=== PATIENT | male | born 1965 | race Caucasian/White ===

== ENCOUNTER 2022-08-14 07:16 | Outpatient (REF) | payer OTHER, SELFPAY ==
--- NOTE | ~2022-08-14 | XR_ITS ---
EXAMINATION: XR CHEST 2 VIEWS CLINICAL INFORMATION: Nicotine dependence. COMPARISON: None. TECHNIQUE: Frontal and lateral views of the chest were obtained. FINDINGS: The heart, great vessels, pulmonary vasculature and mediastinum are normal. The lungs show no focal infiltrate, effusion or pneumothorax. There is mild elevation of the right hemidiaphragm. There is no acute osseous abnormality. There are degenerative changes of the thoracic spine. XR/XR chest 2V IMPRESSION: No active cardiopulmonary disease.
[2022-08-14 08:00] LABS: Appearance Urine Clear; Color Urine Yellow; Glucose Urine UA Negative (Negative); Leukocyte Esterase Urine Negative (Negative); Nitrite Urine Negative (Negative); Specific Gravity - Urine 1.015 (1.005-1.025); Urine Blood Negative (Negative); Urine Ketones Negative (Negative); Urine Protein Negative (Neg-Trace)
[2022-08-14 08:29] LABS: Creatinine Urine 48.09 mg/dL; Microalbum/Creatinine Ratio Ur 14.5 ug/mg cr
[2022-08-14 08:40] LABS: Alanine Aminotransferase 21 U/L (0-40); Albumin Level 4.5 g/dL (3.5-5.0); Alkaline Phosphatase 89 U/L (39-117); Anion Gap 15 (12-20); Aspartate Amino Transferase 20 U/L (5-37); Bilirubin Total 0.7 mg/dL (0.0-1.0); Blood Urea Nitrogen 12 mg/dL (9-16); Calcium 9.4 mg/dL (8.4-10.2); Carbon Dioxide 27 mmol/L (22-29); Chloride 105 mmol/L (96-108); Cholesterol 162 mg/dL; Estimated Glomerular Filt Rate > 60; Glucose Fasting 111 mg/dL (60-99); HDL Cholesterol 52 mg/dL; LDL Cholesterol Calculated 98 mg/dl; Potassium 4.7 mmol/L (3.3-5.1); Sodium 142 mmol/L (135-145); Total Protein 7.1 g/dL (6.5-8.0); Triglycerides 61 mg/dL
[2022-08-14 08:57] LABS: Prostate Specific Antigen Scr 1.05 ng/mL (<0.05-4.0); TSH reflex Free T4 0.52 uIU/mL (0.32-4.0)
== END 2022-08-14 07:17 | disposition home or self-care (01) ==
LOC: HO.LAB 07:16
PROVIDERS: PCP Family Medicine; Visit Provider Family Medicine
DX: Z00.00 Encounter for general adult medical examination without abnormal findings (principal); Z12.5 Encounter for screening for malignant neoplasm of prostate; I10 Essential (primary) hypertension; F17.200 Nicotine dependence, unspecified, uncomplicated
CPT/HCPCS: 36415; 71046; 80053; 80061; 81003; 82043; 84153; 84443

== ENCOUNTER → 2022-08-26 14:15 | Outpatient (BNVA) | payer OTHER, SELFPAY | PROVIDERS: PCP Family Medicine; Visit Provider Physician Assistant | DX: Z13.89 Encounter for screening for other disorder (principal) ==

== ENCOUNTER 2023-07-23 07:02 | Outpatient (REF) | payer OTHER, SELFPAY ==
[2023-07-23 08:00] LABS: Estimated Average Glucose 111 mg/dL; Hemoglobin A1c % 5.5 % (<6.0)
[2023-07-23 08:31] LABS: Alanine Aminotransferase 17 U/L (0-40); Albumin Level 4.3 g/dL (3.5-5.0); Alkaline Phosphatase 80 U/L (39-117); Anion Gap 12 (12-20); Aspartate Amino Transferase 17 U/L (5-37); Bilirubin Total 0.4 mg/dL (0.0-1.0); Blood Urea Nitrogen 14 mg/dL (9-16); Calcium 9.7 mg/dL (8.4-10.2); Carbon Dioxide 31 mmol/L (22-29); Chloride 103 mmol/L (96-108); Cholesterol 150 mg/dL (<200); Estimated Glomerular Filt Rate > 60; Glucose Fasting 112 mg/dL (60-99); HDL Cholesterol 51 mg/dL (>40); LDL Cholesterol Calculated 84 mg/dL (<100); Potassium 4.6 mmol/L (3.3-5.1); Sodium 141 mmol/L (135-145); Total Protein 7.6 g/dL (6.5-8.0); Triglycerides 79 mg/dL (<150)
== END 2023-07-23 07:03 | disposition home or self-care (01) ==
LOC: HO.LAB 07:02
PROVIDERS: PCP Family Medicine; Visit Provider Family Medicine
DX: Z00.00 Encounter for general adult medical examination without abnormal findings (principal); R73.01 Impaired fasting glucose
CPT/HCPCS: 36415; 80053; 80061; 83036

== ENCOUNTER 2023-07-29 15:05 | Outpatient (AMB) | payer OTHER, SELFPAY ==
--- NOTE | 2023-07-29 15:17 | MHC.PC.OV ---
Vital Signs 07/29/23 15:18 Height 5 ft 7 in Weight 159 lb 8 oz BMI 25.0 BP 128/78 Blood Pressure Location Lt brachial Position Sitting Pulse 95 Pulse Source Pulse Oximeter Pulse Oximetry (%) 95 Oxygen Delivery Method Room Air Intake Visit Reasons: f/u HLD and elevated fasting glucose Intake Note: Patient is here for follow up on HLD and elevated fasting blood sugar. Allergies No Known Allergies Allergy (Verified 07/29/23 15:20) Tobacco use date assessed: 07/29/23 HPI f/u HLD and elevated fasting glucose HPI Details 58 y/o male presents to f/u HLD and elevated fasting glucose. Labs were drawn 07/23/23. Reviewed labs with pt. Elevated fasting glucose of 112. A1c 5.5%. Triglycerides 79. TC 150. LDL 84. HDL 51. He is on pravastatin 80mg. Blood pressure today 128/78. He is on lisinopril 10mg daily. Pt reports has yesterday. [facility] Medical History Asthma High cholesterol Social History (Updated 08/26/22 @ 14:34 by Tiesha Dunaway PA-C) Household Members Other:: , 1 daughter Housing: House Patient Tobacco Use Status: Never used Tobacco e-Cigarette/Vaping Use: Never Used Second Hand Smoke Exposure: No Current occupational status: employed Current occupational exposures/hazards: No Cognitive needs: No Hearing needs: No Vision needs: No Questionnaire LUZ ELENA-7 AMB Questionnaire LUZ ELENA-7 Date LUZ ELENA - 7 assessed: 05/18/22 Source: Developed by Drs. Nacho Mir, aTra Carrillo, Kendell Miller and colleagues, with an educational zuleika from [employer]. Review of Systems Const Denies chills, Denies fatigue, Denies fever(s), Denies headache(s) and Denies weakness ENT Denies dizziness and Denies headache(s) Card Denies chest pain, Denies lightheadedness, Denies dyspnea and Denies other (Palpitations) Resp Denies cough, Denies dyspnea, Denies wheezing and Denies other ( shortness of breath) Musc Denies numbness and Denies tingling Neuro Denies dizziness, Denies headache(s), Denies numbness, Denies tingling, Denies paresthesias and Denies weakness Psych Denies anxiety and Denies depression Endo Denies fatigue Aller/Immun Denies wheezing Physical exam (Primary Care) BMI result Body Mass Index 25.0 Tobacco/Smoking Status: Tobacco use Status Tobacco use date assessed 07/30/22 09/22/22 17:12 Patient Tobacco Use Status Never used Tobacco 09/22/22 17:12 e-Cigarette/Vaping Use Never Used 09/22/22 17:12 Const General: no acute distress and well developed Nutritional Appearance: well nourished Orientation/consciousness: patient oriented x3 [facility] Head: Yes normocephalic and Yes atraumatic Eyes General: appearance normal, both eyes and all related structures Pupils: Equal, round and reactive pupils present EOM: EOMs intact bilaterally Resp Effort & Inspection: normal respiratory effort Auscultation: clear to auscultation bilaterally Cardio Rate: regular rate Rhythm: regular rhythm Heart sounds: S1 normal heart sound present, S2 normal heart sound present, no gallops, no murmurs and no rubs Neuro General: patient oriented x3 and gait normal Cranial nerves: Yes Equal, round and reactive pupils present Psych Affect: normal affect Assessment and Plan Assessment & Plan (1) Elevated fasting glucose: Code(s): R73.01 - Impaired fasting glucose Plan: A1c?5.5%?which?is?within?normal?range?though?at?upper?ends Encouraged?a?diet?lower?in?sugars?and?starches Maintain?good?weight?control?and?exercise. (2) Hyperlipidemia: Code(s): E78.5 - Hyperlipidemia, unspecified Plan: He?is?on?pravastatin?80?mg?daily Good?control Continue?current?medication (3) Hypertension: Code(s): I10 - Essential (primary) hypertension Plan: Blood?pressure?appears?well?controlled.??Goal?is?less?than?140/90 Continue?current?medication (4) Acute adjustment disorder: Code(s): F43.20 - Adjustment disorder, unspecified Plan: Patient's??passed?away?yesterday.??He?has?good?family?support. He?did?say?that?he?felt?like?he??just?would?like?someone?to?talk?to Will?have?the?nurse?navigator?touch?base?with?him?soon?as?possible. Can refer to therapy if he likes. Orders: Orders Basic Metabolic Panel Today Z00.00 - Encounter for general adult medical examination without abnormal findings TSH reflex Free T4 Today Z00.00 - Encounter for general adult medical examination without abnormal findings Prostate Specific Antigen Scr Today Z12.5 - Encounter for screening for malignant neoplasm of prostate UA and rflx microscopic Today Z00.00 - Encounter for general adult medical examination without abnormal findings Referrals Nurse Navigator Referral F43.20 - Adjustment disorder, unspecified Coding Level of Care Code Est Pt Level 4 (60207) Diagnoses Elevated fasting glucose R73.01 Hyperlipidemia E78.5 Hypertension I10 Acute adjustment disorder F43.20
[2023-07-29 15:18] VITALS: BP 128/78; PULSE 95; O2SAT 95; BMI 25.0
== END 2023-07-29 15:46 | disposition home or self-care (01) ==
PROVIDERS: PCP Family Medicine; Visit Provider Family Medicine
DX: R73.01 Impaired fasting glucose (principal); E78.5 Hyperlipidemia, unspecified; I10 Essential (primary) hypertension; F43.20 Adjustment disorder, unspecified
CPT/HCPCS: 99214

== ENCOUNTER 2023-09-22 13:52 | Outpatient (AMB) | payer OTHER, SELFPAY ==
[2023-09-22 13:55] VITALS: BP 121/79; PULSE 103; O2SAT 96; BMI 23.6
--- NOTE | 2023-09-22 13:55 | A.OFFPC_ITS ---
Vital Signs 09/22/23 13:55 Height 5 ft 7 in Weight 151 lb BMI 23.6 BP 121/79 Blood Pressure Location Rt brachial Position Sitting Pulse 103 H Pulse Source Pulse Oximeter Pulse Oximetry (%) 96 Oxygen Delivery Method Room Air Intake Visit Reasons: CPE w/ f/u labs & health maint Intake Note: Pt presents to the office today for a CPE with f/u labs and health maint. He states he is doing much better within the past few weeks but states he will still have some anxiety attacks every so often. He states he thinks he is coping well with everything. Allergies No Known Allergies Allergy (Verified 09/22/23 13:57) Tobacco use date assessed: 07/29/23 Dental Screening Dental Screen Date: 09/22/23 Did you have a dental visit in the last 12 months?: No Did you have a dental problem in the last 6 months where you did not have access to dental care?: No Was dental information given to patient?: Patient declined HPI CPE w/ f/u labs & health maint HPI Details 58 y/o male presents for a CPE with f/u labs and health maintenance. Had already reviewed labs drawn 07/23/23. Blood pressure today 121/79, 103p. He is on lisinopril 10mg daily. Has not seen a GI group for a colonoscopy yet. [facility] Medical History Asthma High cholesterol Social History (Updated 09/22/23 @ 13:59 by Gilma Ritter MA) Household Members: None Housing: House Patient Tobacco Use Status: Never used Tobacco e-Cigarette/Vaping Use: Never Used Second Hand Smoke Exposure: No Current occupational status: employed Current occupational exposures/hazards: No Cognitive needs: No Hearing needs: No Vision needs: No Questionnaire PHQ-9 Over the last 2 weeks, how often have you been bothered by any of the following problems? 1. Little interest or pleasure in doing things: not at all 2. Feeling down, depressed, or hopeless: not at all 3. Trouble falling or staying asleep, or sleeping too much: several days 4. Feeling tired or having little energy: several days 5. Poor appetite or overeating: not at all 6. Feeling bad about yourself - or that you are a failure or have let yourself or your family down: not at all 7. Trouble concentrating on things, such as reading the newspaper or watching television: not at all 8. Moving or speaking so slowly that other people could have noticed. Or the opposite - being so fidgety or restless that you have been moving around a lot more than usual: several days 9. Thoughts that you would be better off or of hurting yourself in some way: not at all Total score: 3 Depression Screening Interpretation: Negative Depression Screening Done: Yes 61623 - PHQ-9 Billing: Yes Source: Developed by Drs. Nacho Mir, Tara Carrillo, Kendell Miller and colleagues, with an educational zuleika from [employer]. Thrive Questionnaire Date Thrive assessed: 09/22/23 I am a: Patient What is your living situation today?: I have a steady place to live Within the past 12 months, did the food you bought not last and you didn't have the money to get more?: Never true Within the past 12 months, did you worry whether your food would run out before you got money to buy more?: Never true Do you have trouble paying for medicines?: No Do you have trouble getting transportation to medical appointments?: No Do you have trouble paying your heating and electricity bill?: No Do you have trouble taking care of your child, family member or friend?: No Do you have trouble with day-to-day activities such as bathing, preparing meals, shopping, managing finances, etc.?: No Are you currently unemployed and looking for a job?: No Are you interested in more education?: No THRIVE Score: 0 AUDIT C Alcohol Use Questionnaire (AUDIT-C) 1. How often do you have a drink containing alcohol?: Monthly or less 2. How many drinks containing alcohol do you have on a typical day when you are drinking?: 1 or 2 3. How often do you have six or more drinks on one occasion?: Never Total Score: 1 LUZ ELENA-7 AMB Questionnaire LUZ ELENA-7 Date LUZ ELENA - 7 assessed: 09/22/23 Feeling nervous, anxious, or on edge: 0 = Not at all Not being able to stop or control worryin = Not at all Worrying too much about different things: 0 = Not at all Trouble relaxin = Several days Being so restless that it is hard to sit still: 1 = Several days Becoming easily annoyed or irritable: 0 = Not at all Feeling afraid as if something awful might happen: 0 = Not at all Total LUZ ELENA-7 score (0-4 normal; 5-9 mild; 10-14 moderate; 15-21 severe): 2 Source: Developed by Drs. Nacho Mir, Tara Carrillo, Kendell Miller and colleagues, with an educational zuleika from [employer]. LUZ ELENA-7 Assessment Billing LUZ ELENA-7 Assessment Tool: LUZ ELENA-7 Assessment 17427 Review of Systems Const Denies chills, Denies fatigue, Denies fever(s), Denies headache(s) and Denies weakness Eyes Denies change in vision ENT Denies dizziness, Denies headache(s), Denies hearing loss, Denies nasal congestion, Denies sinus pain, Denies sinus pressure and Denies sore throat Card Denies chest pain, Denies lightheadedness, Denies dyspnea and Denies other (palpitations) Resp Denies cough, Denies dyspnea and Denies wheezing GI Denies abdominal pain, Denies melena, Denies hematochezia, Denies change in bowel habits, Denies dyspepsia and Denies nausea Denies hematuria and Denies dysuria Musc Denies abnormal gait, Denies myalgias, Denies arthralgias, Denies numbness and Denies tingling Skin/Breast Denies rash, Denies unusual bruising and Denies wounds Neuro Denies abnormal gait, Denies dizziness, Denies headache(s), Denies memory loss, Denies numbness, Denies Sensory deficit (Neuro), Denies tingling and Denies weakness Psych Denies anxiety, Denies depression and Denies memory loss Endo Denies cold intolerance, Denies fatigue, Denies heat intolerance, Denies polydipsia and Denies polyuria Brayden/Lymph Denies easy bleeding and Denies easy bruising Aller/Immun Denies wheezing Physical exam (Primary Care) Vital Signs: Last Vital Signs Pulse 103 H 09/22/23 13:55 BP 121/79 09/22/23 13:55 Pulse Ox 96 09/22/23 13:55 Oxygen Delivery Method Room Air 09/22/23 13:55 BMI result Body Mass Index 23.6 Tobacco/Smoking Status: Tobacco use Status Tobacco use date assessed 07/29/23 07/29/23 15:20 Patient Tobacco Use Status Never used Tobacco 09/22/23 13:59 e-Cigarette/Vaping Use Never Used 09/22/23 13:59 Depression Screening Interpretation: Negative Const General: no acute distress, well developed, alert and awake Nutritional Appearance: well nourished Orientation/consciousness: patient oriented x3 [facility] Head: Yes normocephalic and Yes atraumatic Ears: hearing grossly normal bilaterally and TM's normal bilaterally General nose exam: Normal external nose present and Normal nares present Mouth: Normal oral and palatal mucosa present and moist mucous membranes Teeth and gingiva: dentition normal Throat: Yes posterior oropharynx normal Eyes General: appearance normal, both eyes and all related structures Pupils: Equal, round and reactive pupils present and Pupil accommodation reflex normal EOM: EOMs intact bilaterally Neck Neck: Yes normal visual inspection, Yes no lymphadenopathy and Yes trachea midline Thyroid: Thyroid normal Carotids: no bruits Lymphatic: no lymphadenopathy noted Chest Chest palpation & inspection: normal inspection of the chest Resp Effort & Inspection: normal respiratory effort Auscultation: clear to auscultation bilaterally Cardio Rate: regular rate Rhythm: regular rhythm Heart sounds: S1 normal heart sound present, S2 normal heart sound present, no gallops, no murmurs and no rubs Bruits: no abdominal aortic bruits and no carotid bruits GI Palpation (GI): No Abdominal aortic bruit present, Soft to palpation, nontender, No hepatosplenomegaly present and No Rebound tenderness present Auscultation: normal bowel sounds General: Yes no CVA tenderness Back/Spine/Pelvis Back: no CVA tenderness Cervical Spine: cervical ROM normal and No Cervical spine tenderness Thoracic/Lumbar Spine: thoraco-lumbar ROM normal, No pain with thoraco-lumbar ROM, No thoracic spinal tenderness and No lumbar spinal tenderness Skin Lesions: no lesions Rashes: no rashes Trauma: no lacerations or abrasions Wounds: no wounds Nails: normal Neuro General: patient oriented x3 Cranial nerves: Yes Equal, round and reactive pupils present Cognition (Neuro): normal cognition Gait exam (Neuro): Normal gait present Motor exam (neuro): 5/5 motor strength present throughout Sensory Exam: No Sensory deficit (Neuro) Deep tendon reflexes (DTR's): Right patellar reflex intensity grade: 2+ and Left patellar reflex intensity grade: 2+ Extrem General: Yes normal to inspection and No edema Psych Appearance: grossly normal Affect: normal affect Attitude: cooperative Thought process: Normal thought process present Assessment and Plan Assessment & Plan (1) Adult general medical exam: Code(s): Z00.00 - Encounter for general adult medical examination without abnormal findings Plan: 58-year-old?male?presents?for?complete?physical?exam Encouraged?healthy?diet?with?active?lifestyle?and?plenty?of?exercise (2) Acute adjustment disorder: Code(s): F43.20 - Adjustment disorder, unspecified Plan: Patient?is?coping?well?and?has?plenty?of?family?suppor t?after?the?passing?of?his? He?can?continue?hydroxyzine He?had?seen?the?nurse?navigator?at?the?end?of?his?last?visit?with?me.??He?does?n ot?feel?that?he?needs?therapist?at?this?time. (3) Screening for prostate cancer: Code(s): Z12.5 - Encounter for screening for malignant neoplasm of prostate Plan: PSA?is?within?normal?limit Will?continue?annual?screen (4) Screening for colon cancer: Code(s): Z12.11 - Encounter for screening for malignant neoplasm of colon Plan: Patient?had?had?a?positive?Cologuard?test?in?2021.??He?had?been?referred?to?GI?a nd?appears?to?have?seen?the?g astroenterology?group?once?but?has?not?completed?follow-up. Referred?back?to?GI (5) Hypertension: Code(s): I10 - Essential (primary) hypertension Plan: Blood?pressure?is?controlled. Goal?is?less?than?140/90 Continue?current?medication Orders: Referrals Gastroenterology Referral R19.5 - Other fecal abnormalities Coding Level of Care Code Est Pt Level 3 (50789) Est Pt Prev Care 40-64y(07976) Diagnoses Adult general medical exam Z00.00 Acute adjustment disorder F43.20 Screening for prostate cancer Z12.5 Screening for colon cancer Z12.11 Hypertension I10 Additional Codes LUZ ELENA-7 Assessment Billing - LUZ ELENA-7 Assessment Tool: LUZ ELENA-7 Assessment 83131 ([id number])
== END 2023-09-22 14:22 | disposition home or self-care (01) ==
PROVIDERS: PCP Family Medicine; Visit Provider Family Medicine
DX: Z00.00 Encounter for general adult medical examination without abnormal findings (principal); F43.20 Adjustment disorder, unspecified; I10 Essential (primary) hypertension; Z12.5 Encounter for screening for malignant neoplasm of prostate; Z12.11 Encounter for screening for malignant neoplasm of colon
CPT/HCPCS: 99396

== ENCOUNTER 2024-06-15 11:42 | Outpatient (AMB) | payer OTHER, SELFPAY ==
--- NOTE | 2024-06-15 12:27 | A.OFFPC_ITS ---
Vital Signs 06/15/24 12:31 Height 5 ft 7 in Weight 145 lb 4 oz BMI 22.7 BP 92/60 Blood Pressure Location Lt brachial Position Sitting Respiration 14 Pulse 87 Pulse Source Pulse Oximeter Temp 98.0 F Temp Source Oral Pulse Oximetry (%) 97 Oxygen Delivery Method Room Air Intake Visit Reasons: f/u acute adjustment disorder, chronic conditions Intake Note: F/U htn Allergies No Known Allergies Allergy (Verified 06/15/24 12:30) Medication List - Last Reconciled 06/15/24 by Mario Valladares MD albuterol sulfate 90 mcg/actuation 2 puffs inhalation Q6H PRN 30 days bisacodyl (Dulcolax (bisacodyl)) 10 mg (2 x 5 mg) PO ONCE 1 day budesonide 90 mcg/actuation (Pulmicort Flexhaler) 1 inh inhalation BID 30 days fluticasone propionate 220 mcg/actuation 2 puffs inhalation BID 30 days lisinopril 10 mg PO DAILY 90 days polyethylene glycol 3350 (Miralax) 238 grams PO ONCE 1 day pravastatin 80 mg PO BEDTIME 90 days Tobacco use date assessed: 07/29/23 Dental Screening Dental Screen Date: 09/22/23 HPI f/u acute adjustment disorder, chronic conditions HPI Details 59 y/o male presents to f/u acute adjust ment disorder, chronic conditions. Blood pressure today 92/60, 87p. He is on lisinopril 10mg daily. Positive cologuard test. [facility], [facility] Medical History Asthma High cholesterol Social History (Updated 09/22/23 @ 13:59 by Gilma Ritter CMA) Household Members: None Housing: House Patient Tobacco Use Status: Never used Tobacco e-Cigarette/Vaping Use: Never Used Second Hand Smoke Exposure: No Current occupational status: employed Current occupational exposures/hazards: No Cognitive needs: No Hearing needs: No Vision needs: No Questionnaire PHQ-9 Over the last 2 weeks, how often have you been bothered by any of the following problems? 2. Feeling down, depressed, or hopeless: several days 3. Trouble falling or staying asleep, or sleeping too much: several days 5. Poor appetite or overeating: not at all 6. Feeling bad about yourself - or that you are a failure or have let yourself or your family down: not at all 7. Trouble concentrating on things, such as reading the newspaper or watching television: not at all 8. Moving or speaking so slowly that other people could have noticed. Or the opposite - being so fidgety or restless that you have been moving around a lot more than usual: not at all 9. Thoughts that you would be better off or of hurting yourself in some way: not at all Source: Developed by Drs. Nacho Mir, Tara Carrillo, Kendell Miller and colleagues, with an educational zuleika from [employer]. Thrive Questionnaire Date Thrive assessed: 09/22/23 I am a: Patient What is your living situation today?: I have a steady place to live Within the past 12 months, did the food you bought not last and you didn't have the money to get more?: Never true Within the past 12 months, did you worry whether your food would run out before you got money to buy more?: Never true Do you have trouble paying for medicines?: No Do you have trouble getting transportation to medical appointments?: No Do you have trouble paying your heating and electricity bill?: No Do you have trouble taking care of your child, family member or friend?: No Do you have trouble with day-to-day activities such as bathing, preparing meals, shopping, managing finances, etc.?: No Are you currently unemployed and looking for a job?: No Are you interested in more education?: No Please select the resources that you would like help with: None Currently or been in a relationship where the following occur: No concerns reported THRIVE Score: 0 AUDIT C Alcohol Use Questionnaire (AUDIT-C) 1. How often do you have a drink containing alcohol?: 2-4 times a month 2. How many drinks containing alcohol do you have on a typical day when you are drinking?: 1 or 2 3. How often do you have six or more drinks on one occasion?: Never Total Score: 2 LUZ ELENA-7 AMB Questionnaire LUZ ELENA-7 Date LUZ ELENA - 7 assessed: 09/22/23 Feeling nervous, anxious, or on edge: 1 = Several days Not being able to stop or control worryin = Not at all Worrying too much about different things: 1 = Several days Trouble relaxin = Several days Being so restless that it is hard to sit still: 1 = Several days Becoming easily annoyed or irritable: 1 = Several days Feeling afraid as if something awful might happen: 1 = Several days Total LUZ ELENA-7 score (0-4 normal; 5-9 mild; 10-14 moderate; 15-21 severe): 6 Source: Developed by Drs. Nacho Mir, Tara Carrillo, Kendell Miller and colleagues, with an educational zuleika from [employer]. Review of Systems Const Denies chills, Denies fatigue, Denies fever(s), Denies headache(s) and Denies weakness ENT Denies dizziness and Denies headache(s) Card Denies chest pain, Denies lightheadedness, Denies dyspnea and Denies other (Palpitations) Resp Denies cough, Denies dyspnea, Denies wheezing and Denies other ( shortness of breath) Musc Denies numbness and Denies tingling Neuro Denies dizziness, Denies headache(s), Denies numbness, Denies tingling, Denies paresthesias and Denies weakness Psych Denies anxiety and Denies depression Endo Denies fatigue Aller/Immun Denies wheezing Physical exam (Primary Care) Vital Signs: Last Vital Signs Temp 98.0 F 06/15/24 12:31 Pulse 87 06/15/24 12:31 Resp 14 06/15/24 12:31 BP 92/60 06/15/24 12:31 Pulse Ox 97 06/15/24 12:31 Oxygen Delivery Method Room Air 06/15/24 12:31 BMI result Body Mass Index 25.4 Tobacco/Smoking Status: Tobacco use Status Tobacco use date assessed 07/29/23 06/15/24 12:27 Patient Tobacco Use Status Never used Tobacco 06/15/24 12:27 e-Cigarette/Vaping Use Never Used 06/15/24 12:27 Thrive Assessment: Date of Thrive Assessment Date Thrive assessed 09/22/23 06/15/24 12:27 Currently or been in a relationship where the following occur: No concerns reported Const General: no acute distress and well developed Nutritional Appearance: well nourished Orientation/consciousness: patient oriented x3 HENMT Head: Yes normocephalic and Yes atraumatic Eyes General: appearance normal, both eyes and all related structures Pupils: Equal, round and reactive pupils present EOM: EOMs intact bilaterally Resp Effort & Inspection: normal respiratory effort Auscultation: clear to auscultation bilaterally Cardio Rate: regular rate Rhythm: regular rhythm Heart sounds: S1 normal heart sound present, S2 normal heart sound present, no gallops, no murmurs and no rubs Neuro General: patient oriented x3 and gait normal Cranial nerves: Yes Equal, round and reactive pupils present Psych Affect: normal affect Coding Level of Care Code Est Pt Level 4 (22273) Diagnoses Hypertension I10 Acute adjustment disorder F43.20 Positive colorectal cancer screening using Cologuard test R19.5 Assessment & Plan Assessment & Plan (1) Hypertension: Code(s): I10 - Essential (primary) hypertension Category: Medical Plan: Blood?pressure?is?little?too?low.??He?has?change?dietary ?habits?since?his??passed?away He?will?decrease?lisinopril?to?5?mg?daily?by?taking?1/2?tab?daily. ?He?will?check?his?blood?pressures?and?if?blood?pressures?are?running?higher?he? will?take?the?other?half. Will?follow-up?in?3?months?to?adjust?medication?as?needed (2) Acute adjustment disorder: Code(s): F43.20 - Adjustment disorder, unspecified Category: Medical Plan: Patient's??had?passed?away?prior?to?our?last?visit He?has?good?family?and?friend?support?in?is?stable We?discussed?that?if?he?would?like?a?therapist?or?to?discuss?medications?know He?is?having?some?difficulty?with?sleep?and?I?gave?him?a?script?for?trazodone?wh ich?he?can?try?before?bedtime (3) Positive colorectal cancer screening using Cologuard test: Comment: No GI complaints No family history GI can Schedule colonoscopy Code(s): R19.5 - Other fecal abnormalities Category: Medical Plan: Patient?had?not?been?contacted?for?screening?for?colon?cancer?after?having?a?pos itive?Cologuard?test. He?says?his?contact?info?was?his?'s?and?she?has?passed?away. He?has ?updated?his?contact?info?and?I?have?renewed?his?referral?to?gastroenterology. Orders: Referrals Gastroenterology Referral R19.5 - Other fecal abnormalities Medications: New trazodone 50 mg PO BEDTIME 30 days PRN 30 tabs 1RF sleep Changed From lisinopril 10 mg PO DAILY 90 days 90 tabs 0RF To lisinopril 5 mg (1/2 x 10 mg) PO DAILY 90 days 45 tabs 0RF
[2024-06-15 12:31] VITALS: BP 92/60; PULSE 87; RESP 14; TEMP 36.7; O2SAT 97; BMI 22.7
== END 2024-06-15 12:54 | disposition home or self-care (01) ==
PROVIDERS: PCP Family Medicine; Visit Provider Family Medicine
DX: I10 Essential (primary) hypertension (principal); F43.20 Adjustment disorder, unspecified; R19.5 Other fecal abnormalities

== ENCOUNTER → 2024-06-15 11:42 | Outpatient (BNVA) | payer OTHER, SELFPAY | PROVIDERS: PCP Family Medicine; Visit Provider Family Medicine ==

== ENCOUNTER 2024-10-02 15:27 | Outpatient (AMB) | payer OTHER, SELFPAY ==
--- NOTE | 2024-10-02 15:33 | MHC.PC.OV ---
Vital Signs 10/02/24 15:39 Height 5 ft 7 in Weight 149 lb BMI 23.3 BP 124/73 Blood Pressure Location Rt brachial Position Sitting Respiration 16 Pulse 67 Pulse Source Pulse Oximeter Temp 97.8 F Temp Source Oral Pulse Oximetry (%) 94 Oxygen Delivery Method Room Air Intake Visit Reasons: PAM [place] pt. Intake Note: patient here for CPE Medical Review Specialist Required: No Allergies No Known Allergies Allergy (Verified 10/02/24 15:49) Medication List - Last Reconciled 10/02/24 by Poppy Potts CNP albuterol sulfate 90 mcg/actuation 2 puffs inhalation Q6H PRN 30 days budesonide 90 mcg/actuation (Pulmicort Flexhaler) 1 inh inhalation BID 30 days lisinopril 5 mg (1/2 x 10 mg) PO DAILY 90 days pravastatin 80 mg PO BEDTIME 90 days trazodone 50 mg PO BEDTIME PRN 30 days Tobacco use date assessed: 10/02/24 Dental Screening Dental Screen Date: 10/02/24 Did you have a dental visit in the last 12 months?: No Did you have a dental problem in the last 6 months where you did not have access to dental care?: No Was dental information given to patient?: Yes HPI HPI Comments History of Present Illness Details 59-year-old male presents for an extended physical exam. He is a patient of Dr. Valladares. Acute issue(s) - Asthma: He is on albuterol inhaler and pulmicort. He had flu-like symptoms 3 weeks ago and has been experiencing nasal congestion and wheezing since. He has been using his albuterol inhaler more. Past Medical History - Hypertension, hyperlipidemia, asthma Social History - Former smoker, smoked about 1 pack daily x 15-20 years, quit 2 years ago. Does not vape. Drinks 1-2 mixed drinks occasionally on Saturdays. Denies recreational drug use - Has been making healthy dietary choices. Exercises routinely. Generally sleep well Health maintenance - Last eye exam was 2-3 years ago at [facility]. 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 positive 2 years ago. He has never had a colonoscopy. He has an appointment with [facility] [place] gastroenterology for a colonoscopy [facility] Medical History Asthma High cholesterol Social History (Updated 09/22/23 @ 13:59 by Gilma Ritter CMA) Household Members: None Housing: House Patient Tobacco Use Status: Never used Tobacco e-Cigarette/Vaping Use: Never Used Second Hand Smoke Exposure: No Current occupational status: employed Current occupational exposures/hazards: No Cognitive needs: No Hearing needs: No Vision needs: No Questionnaire PHQ-9 Over the last 2 weeks, how often have you been bothered by any of the following problems? 1. Little interest or pleasure in doing things: not at all 2. Feeling down, depressed, or hopeless: not at all 3. Trouble falling or staying asleep, or sleeping too much: not at all 4. Feeling tired or having little energy: not at all 5. Poor appetite or overeating: not at all 6. Feeling bad about yourself - or that you are a failure or have let yourself or your family down: not at all 7. Trouble concentrating on things, such as reading the newspaper or watching television: not at all 8. Moving or speaking so slowly that other people could have noticed. Or the opposite - being so fidgety or restless that you have been moving around a lot more than usual: not at all 9. Thoughts that you would be better off or of hurting yourself in some way: not at all Total score: 0 Depression Screening Interpretation: Negative Depression Screening Done: Yes 01969 - PHQ-9 Billing: Yes Source: Developed by Drs. Nacho Mir, Tara Carrillo, Kendell Miller and colleagues, with an educational zuleika from [email or web address]. Thrive Questionnaire Date Thrive assessed: 10/02/24 I am a: Patient What is your living situation today?: I have a steady place to live Within the past 12 months, did the food you bought not last and you didn't have the money to get more?: Never true Within the past 12 months, did you worry whether your food would run out before you got money to buy more?: Never true Do you have trouble paying for medicines?: No Do you have trouble getting transportation to medical appointments?: No Do you have trouble paying your heating and electricity bill?: No Do you have trouble taking care of your child, family member or friend?: No Do you have trouble with day-to-day activities such as bathing, preparing meals, shopping, managing finances, etc.?: No Are you currently unemployed and looking for a job?: No Are you interested in more education?: No Please select the resources that you would like help with: None Currently or been in a relationship where the following occur: No concerns reported THRIVE Score: 0 AUDIT C Alcohol Use Questionnaire (AUDIT-C) 1. How often do you have a drink containing alcohol?: 2-4 times a month 2. How many drinks containing alcohol do you have on a typical day when you are drinking?: 1 or 2 3. How often do you have six or more drinks on one occasion?: Never Total Score: 2 LUZ ELENA-7 AMB Questionnaire LUZ ELENA-7 Date LUZ ELENA - 7 assessed: 10/02/24 Feeling nervous, anxious, or on edge: 1 = Several days Not being able to stop or control worryin = Not at all Worrying too much about different things: 1 = Several days Trouble relaxin = Several days Being so restless that it is hard to sit still: 0 = Not at all Becoming easily annoyed or irritable: 1 = Several days Feeling afraid as if something awful might happen: 0 = Not at all Total LUZ ELENA-7 score (0-4 normal; 5-9 mild; 10-14 moderate; 15-21 severe): 4 Source: Developed by Drs. Nacho Mir, Tara Carrillo, Kendell Miller and colleagues, with an educational zuleika from [email or web address]. LUZ ELENA-7 Assessment Billing LUZ ELENA-7 Assessment Tool: LUZ ELENA-7 Assessment 18211 ACT Questionnaire In the past 4 weeks, how much of the time did your asthma keep you from getting as much done at work, school or at home?: None of the time During the past 4 weeks, how often have you had shortness of breath?: 3-6 times a week During the past 4 weeks, how often did your asthma symptoms wake you up at night or earlier than usual in the morning?: 2-3 nights a week During the past 4 weeks, how often have you had to use your rescue inhaler or nebulizer medication?: More than 3 times per day How would you rate your asthma control during the past 4 weeks?: Somewhat controlled ACT Interpretation: Positive Score: 14 Review of Systems Const Details: Denies chills, Denies fatigue, Denies fever(s), Denies headache(s) and Denies weakness HEENT Denies change in vision, Denies dizziness, Denies headache(s), Denies hearing loss, Denies nasal congestion, Denies sinus pain, Denies sinus pressure and Denies sore throat Card Denies chest pain, Denies lightheadedness, Denies dyspnea and Denies other (palpitations) Resp Denies cough, Denies dyspnea and Denies wheezing GI Denies abdominal pain, Denies melena, Denies hematochezia, Denies change in bowel habits, Denies dyspepsia and Denies nausea Denies hematuria and Denies dysuria Musc Denies abnormal gait, Denies myalgias, Denies arthralgias, Denies numbness and Denies tingling Skin/Breast Denies rash, Denies unusual bruising and Denies wounds Neuro Denies abnormal gait, Denies dizziness, Denies headache(s), Denies memory loss, Denies numbness, Denies Sensory deficit (Neuro), Denies tingling and Denies weakness Psych Denies anxiety, Denies depression and Denies memory loss Endo Denies cold intolerance, Denies fatigue, Denies heat intolerance, Denies polydipsia and Denies polyuria Brayden/Lymph Denies easy bleeding and Denies easy bruising Aller/Immun Denies wheezing Physical exam (Primary Care) Vital Signs: Last Vital Signs Temp 97.8 F 10/02/24 15:39 Pulse 67 10/02/24 15:39 Resp 16 10/02/24 15:39 BP 124/73 10/02/24 15:39 Pulse Ox 94 10/02/24 15:39 Oxygen Delivery Method Room Air 10/02/24 15:39 BMI result Body Mass Index 23.3 Tobacco/Smoking Status: Tobacco use Status Tobacco use date assessed 10/02/24 10/02/24 15:44 Patient Tobacco Use Status Never used Tobacco 10/02/24 15:36 e-Cigarette/Vaping Use Never Used 10/02/24 15:36 PHQ-9: PHQ-9 Score PHQ-9: Total score 0 10/02/24 15:51 Depression Screening Interpretation: Negative Thrive Assessment: Date of Thrive Assessment Date Thrive assessed 10/02/24 10/02/24 15:36 Currently or been in a relationship where the following occur: No concerns reported Const Other: General: no acute distress, well developed, alert and awake Nutritional Appearance: well nourished Orientation/consciousness: patient oriented x3 HENMT Head: Yes normocephalic and Yes atraumatic Ears: hearing grossly normal bilaterally and TM's normal bilaterally General nose exam: Normal external nose present and Normal nares present Mouth: Normal oral and palatal mucosa present and moist mucous membranes Teeth and gingiva: Some decayed and missing teeth Throat: Yes oropharynx normal Eyes Pupils: Equal, round and reactive pupils present and Pupil accommodation reflex normal EOM: EOMs intact bilaterally Neck Neck: Yes normal visual inspection, Yes no lymphadenopathy and Yes trachea midline Thyroid: Thyroid normal Carotids: no bruits Lymphatic: no lymphadenopathy noted Chest Chest palpation & inspection: normal inspection of the chest Resp Effort & Inspection: normal respiratory effort Auscultation: clear to auscultation bilaterally Cardio Rate: regular rate Rhythm: regular rhythm Heart sounds: S1 normal heart sound present, S2 normal heart sound present, no gallops, no murmurs and no rubs Bruits: no abdominal aortic bruits and no carotid bruits GI Palpation (GI): No Abdominal aortic bruit present, Soft to palpation, nontender, No hepatosplenomegaly present and No Rebound tenderness present Auscultation: normal bowel sounds General: Yes no CVA tenderness Back/Spine/Pelvis Back: no CVA tenderness Cervical Spine: cervical ROM normal and No Cervical spine tenderness Thoracic/Lumbar Spine: thoraco-lumbar ROM normal, No pain with thoraco-lumbar ROM, No thoracic spinal tenderness and No lumbar spinal tenderness Skin General: warm and dry. Normal skin color. Normal skin turgor Lesions: no lesions Rashes: no rashes Trauma: no lacerations or abrasions Wounds: no wounds Nails: normal Neuro General: patient oriented x3, gait normal and CN's II-XI intact bilaterally Cranial nerves: Yes Equal, round and reactive pupils present Cognition (Neuro): normal cognition Gait exam (Neuro): Normal gait present Motor exam (neuro): 5/5 motor strength present throughout Sensory Exam: No Sensory deficit (Neuro) Deep tendon reflexes (DTR's): Right patellar reflex intensity grade: 2+ and Left patellar reflex intensity grade: 2+ Extrem General: Yes normal to inspection, No edema and No calf tenderness Psych Appearance: grossly normal Affect: normal affect Attitude: cooperative Thought process: Normal thought process present Immunizations Boostrix Tdap 2.5 Lf unit-8 mcg-5 Lf/0.5 mL intramuscular syringe Performing Provider: Poppy Potts CNP Performing Location: [facility] [place] Family Medicine Administered by: Mynor House RN on 10/02/24 16:14 Dose Route Admin Location Dispensed Lot Number Expiration Date [facility] Missing [employer] Invest[employer] 0.5 mL IM Right Deltoid 0.5 mL [id number] 05/07/25 23250-523-11 [employer] VIS Given Date VIS Provided VIS Publication Date 10/02/24 Single Vaccine 21 Eligibility Eligibility Date Funding Source Not [facility] Eligible 10/02/24 Private Coding Level of Care Code Est Pt Prev Care 40-64y(51358) Diagnoses Adult general medical exam Z00.00 Hypertension I10 Asthma J45.909 Laboratory exam ordered as part of routine general medical examination Z00.00 Additional Codes LUZ ELENA-7 Assessment Billing - LUZ ELENA-7 Assessment Tool: LUZ ELENA-7 Assessment 27185 ([id number]) PHQ-9 - 48613 - PHQ-9 Billing: Yes ([id number]) Asthma Control Questionnaire - ACT Interpretation: Positive ([id number]) Assessment & Plan Assessment & Plan (1) Adult general medical exam: Code(s): Z00.00 - Encounter for general adult medical examination without abnormal findings Category: Medical Plan: Normal physical exam of a 59-year-old male. No significant functional limitation noted. Perform lab work and follow-up for telehealth visit with PCP in 2-4 weeks. Return sooner with symptoms or concerns. Verbalized understanding and agreed with the plan. (2) Hypertension: Code(s): I10 - Essential (primary) hypertension Category: Medical Plan: Blood pressure is controlled, 124/73. Continue current treatment regimen. Follow-up with PCP as planned. (3) Asthma: Comment: Poorly controlled Code(s): J45.909 - Unspecified asthma, uncomplicated Category: Medical Plan: He had flu-like symptoms 3 weeks ago and has been experiencing nasal congestion and wheezing since. He has been using his albuterol inhaler more. ACT score is 14, poorly control asthma. Montelukast 10 mg daily ordered; advised to take as prescribed. Instructed on the risks, benefits, and potential adverse reactions of the medication. Continue use albuterol and Pulmicort inhaler as prescribed. Follow-up with worsening or new symptoms. Verbalized understanding and agreed with treatment plan. (4) Laboratory exam ordered as part of routine general medical examination: Code(s): Z00.00 - Encounter for general adult medical examination without abnormal findings Category: Medical Plan: Fasting labs ordered as part of a complete physical exam. Advised to fast for at least 10 hours before getting labs drawn. May drink water Verbalized understanding and agreed with treatment plan. Orders: Orders TDaP Immunization Today Z23 - Encounter for immunization Complete Blood Count Auto Diff Today Z00.00 - Encounter for general adult medical examination without abnormal findings Comprehensive [place]. Panel Fast Today Z00.00 - Encounter for general adult medical examination without abnormal findings PSA, Ultra Sensitive Today Z00.00 - Encounter for general adult medical examination without abnormal findings TSH reflex Free T4 Today Z00.00 - Encounter for general adult medical examination without abnormal findings UA CC w/rflx Micro + Cult Today Z00.00 - Encounter for general adult medical examination without abnormal findings Vitamin D 25-OH Total Today Z00.00 - Encounter for general adult medical examination without abnormal findings Lipid Panel Today Z00.00 - Encounter for general adult medical examination without abnormal findings Microalbumin, Random (w Creat) Today Z00.00 - Encounter for general adult medical examination without abnormal findings Medications: New Boostrix Tdap (diphth,pertus(acell),tetanus) 0.5 mL IM ONCE 0.5 mL 0RF NS Z23 - Encounter for immunization montelukast 10 mg PO DAILY 30 days 30 tabs 3RF
[2024-10-02 15:39] VITALS: BP 124/73; PULSE 67; RESP 16; TEMP 36.6; O2SAT 94; BMI 23.3
== END 2024-10-02 16:18 | disposition home or self-care (01) ==
LOC: HO.HMCFM 15:28
PROVIDERS: PCP Family Medicine; Visit Provider Nurse Practitioner Family
DX: Z00.00 Encounter for general adult medical examination without abnormal findings (principal); I10 Essential (primary) hypertension; J45.909 Unspecified asthma, uncomplicated; Z23 Encounter for immunization

== ENCOUNTER → 2024-10-02 15:27 | Outpatient (BNVA) | payer OTHER, SELFPAY | PROVIDERS: PCP Family Medicine; Visit Provider Nurse Practitioner Family | DX: Z00.00 Encounter for general adult medical examination without abnormal findings (principal); Z23 Encounter for immunization; I10 Essential (primary) hypertension; J45.909 Unspecified asthma, uncomplicated | CPT/HCPCS: 90471; 90715; 96127; 96160 ==

== ENCOUNTER 2024-10-26 06:01 | Outpatient (REF) | payer OTHER, SELFPAY ==
[2024-10-26 07:17] LABS: Basophils Absolute Auto 0.1 X10*3/uL (0.0-0.2); Basophils Percent Auto 0.8 % (0-2); Eosinophils Absolute Auto 0.3 X10*3/uL (0.0-0.4); Hematocrit 43.6 % (42.0-52.0); Hemoglobin 14.3 g/dl (14.0-18.0); Imm Gran Abs Auto 0.01 X10*3/uL (0.00-0.03); Imm Gran Pct Auto 0.1 % (0.0-0.4); Lymphocytes Absolute Auto 1.6 X10*3/uL (1.2-4.9); Lymphocytes Percent Auto 22.3 % (20-40); MANUAL DIFF FLAG NO; Mean Corpuscular HGB Conc 32.8 g/dl (31.0-36.0); Mean Corpuscular Hemoglobin 31.8 pg (27.0-33.0); Mean Corpuscular Volume 97.1 fL (80.0-98.0); Mean Platelet Volume 9.1 fL (9.4-12.4); Monocytes Absolute Auto 0.7 X10*3/uL (0.1-1.2); Monocytes Percent Auto 10.1 % (2-11); Neutrophils Absolute Auto 4.5 x10*3/uL (2.0-8.3); Neutrophils Percent Auto 62.7 % (45-73); Platelet Count 366 X10*3/uL (160-400); Red Blood Count 4.49 X10*6/uL (4.60-5.80); Red Cell Distribution Width 12.9 % (11.0-16.0); White Blood Count 7.2 X10*3/uL (4.8-10.8)
[2024-10-26 07:25] LABS: Appearance Urine Clear; Color Urine Yellow; Glucose Urine UA Negative (Negative); Leukocyte Esterase Urine Negative (Negative); Nitrite Urine Negative (Negative); PH 7.5 (5.0-9.0); Specific Gravity - Urine 1.015 (1.005-1.025); Urine Blood Negative (Negative); Urine Ketones Negative (Negative); Urine Protein Negative (Neg-Trace)
[2024-10-26 07:47] LABS: Creatinine Urine 71.81 mg/dL; Microalbumin Urine < 5.0 mg/L
[2024-10-26 08:01] LABS: Alanine Aminotransferase 20 U/L (0-40); Albumin Level 4.2 g/dL (3.5-5.0); Anion Gap 11 (12-20); Aspartate Amino Transferase 26 U/L (5-37); Bilirubin Total 0.8 mg/dL (0.0-1.0); Blood Urea Nitrogen 13 mg/dL (9-16); Calcium 9.1 mg/dL (8.4-10.2); Carbon Dioxide 29 mmol/L (22-29); Chloride 105 mmol/L (96-108); Cholesterol 149 mg/dL (<200); Estimated Glomerular Filt Rate > 60; Glucose Fasting 103 mg/dL (60-99); HDL Cholesterol 59 mg/dL (>40); LDL Cholesterol Calculated 79 mg/dL (<100); Potassium 4.1 mmol/L (3.3-5.1); Sodium 141 mmol/L (135-145); Total Protein 6.8 g/dL (6.5-8.0); Triglycerides 56 mg/dL (<150)
[2024-10-26 08:05] LABS: Alkaline Phosphatase 86 U/L (39-117)
[2024-10-26 08:18] LABS: Vitamin D 25-OH Total 14.3 ng/mL (>30)
[2024-10-31 00:58] LABS: PSA, Ultra Sensitive 1.74 ng/mL
== END 2024-10-26 06:02 | disposition home or self-care (01) ==
LOC: HO.LAB 06:01
PROVIDERS: PCP Family Medicine; Visit Provider Nurse Practitioner Family
DX: Z00.00 Encounter for general adult medical examination without abnormal findings (principal); Z12.5 Encounter for screening for malignant neoplasm of prostate; Z13.6 Encounter for screening for cardiovascular disorders
CPT/HCPCS: 36415; 80053; 80061; 81003; 82306; 82570; 84153; 84443; 85025

== ENCOUNTER 2024-11-02 16:43 | Outpatient (AMB) | payer OTHER, SELFPAY ==
--- NOTE | 2024-11-02 16:40 | MHC.PC.OV ---
Intake Visit Reasons: Dr. Oleary telehealth labs review 2-4 wks Allergies No Known Allergies Allergy (Verified 11/02/24 16:41) Tobacco use date assessed: 10/02/24 Dental Screening Dental Screen Date: 10/02/[address] Oleary telehealth labs review 2-4 wks HPI Details Telemedicine?appointment?to?follow-up?on?CPE-labs Reviewed?labs?patient Vitamin-D?level?14.1. Fasting?blood?sugar 112, 103 His?other?lab?work?is?okay Patient?feels?well.??No?complaints PFSH Medical History Asthma High cholesterol Social History (Updated 09/22/23 @ 13:59 by Gilma Ritter CMA) Household Members: None Housing: House Patient Tobacco Use Status: Never used Tobacco e-Cigarette/Vaping Use: Never Used Second Hand Smoke Exposure: No Current occupational status: employed Current occupational exposures/hazards: No Cognitive needs: No Hearing needs: No Vision needs: No Questionnaire Thrive Questionnaire Date Thrive assessed: 10/02/24 LUZ ELENA-7 AMB Questionnaire LUZ ELENA-7 Date LUZ ELENA - 7 assessed: 10/02/24 Source: Developed by Drs. Nacho Mir, Tara Carrillo, Kendell Miller and colleagues, with an educational zuleika from [employer]. Review of Systems Const Denies chills, Denies fatigue, Denies fever(s), Denies headache(s) and Denies weakness ENT Denies dizziness and Denies headache(s) Card Denies chest pain, Denies lightheadedness, Denies dyspnea and Denies other (Palpitations) Resp Denies cough, Denies dyspnea, Denies wheezing and Denies other ( shortness of breath) Musc Denies numbness and Denies tingling Neuro Denies dizziness, Denies headache(s), Denies numbness, Denies tingling, Denies paresthesias and Denies weakness Psych Denies anxiety and Denies depression Endo Denies fatigue Aller/Immun Denies wheezing Physical exam (Primary Care) Tobacco/Smoking Status: Tobacco use Status Tobacco use date assessed 10/02/24 11/02/24 16:42 Patient Tobacco Use Status Never used Tobacco 11/02/24 16:42 e-Cigarette/Vaping Use Never Used 11/02/24 16:42 Thrive Assessment: Date of Thrive Assessment Date Thrive assessed 10/02/24 11/02/24 16:42 Telehealth Telehealth Telehealth Platform: Telephone Location of provider rendering services: practice address Location of patient: address on file Patient Identification confirmed using: Name, : Yes Telehealth method: voice only Patient verbally consented to treatment: Yes Patient verbally consented to billing insurance company: Yes Patient informed of any privacy concerns related to visit: Yes Minutes spent on Phone/Video with Pt.: 5 Coding Level of Care Code Tele Est Pt Level 2 (41912) Diagnoses Vitamin D deficiency E55.9 Elevated fasting glucose R73.01 Assessment & Plan Assessment & Plan (1) Vitamin D deficiency: Code(s): E55.9 - Vitamin D deficiency, unspecified Category: Medical Plan: Start?a?daily?supplements Cholecalciferol?2000?IU?daily Will?follow-up?at?next?blood?draw. (2) Elevated fasting glucose: Code(s): R73.01 - Impaired fasting glucose Category: Medical Plan: Fasting?blood?sugar.??His?A1c?has?been?within?normal?range?in?the?past Will?recheck?fasting?blood?sugar?along?with?A1c?at?his?next?blood?draw Orders: Orders Comprehensive [place]. Panel Fast Today Z00.00 - Encounter for general adult medical examination without abnormal findings Vitamin D 25-OH Total Today E55.9 - Vitamin D deficiency, unspecified Hemoglobin A1c Today R73.01 - Impaired fasting glucose Lipid Panel Today Z00.00 - Encounter for general adult medical examination without abnormal findings Medications: New cholecalciferol (vitamin D3) 50 mcg PO DAILY 30 days 30 caps 6RF
== END 2024-11-02 17:05 | disposition home or self-care (01) ==
LOC: HO.HMCFM 16:43
PROVIDERS: PCP Family Medicine; Visit Provider Family Medicine
DX: E55.9 Vitamin D deficiency, unspecified (principal); R73.01 Impaired fasting glucose

== ENCOUNTER → 2024-11-02 16:43 | Outpatient (BNVA) | payer OTHER, SELFPAY | PROVIDERS: PCP Family Medicine; Visit Provider Family Medicine | DX: Z13.89 Encounter for screening for other disorder (principal) ==

== ENCOUNTER → 2025-04-05 16:00 | Outpatient (AMB) | payer OTHER, SELFPAY ==
--- NOTE | 2025-04-05 16:01 | MHC.OFFVIS ---
Vital Signs 04/05/25 16:02 Height 5 ft 7 in Weight 144 lb BMI 22.6 BP 118/70 Blood Pressure Location Rt brachial Position Sitting Pulse 88 Pulse Source Pulse Oximeter Pulse Oximetry (%) 92 Oxygen Delivery Method Room Air Intake Visit Reasons: [place] screening, + cologuard. Office r/s x1 Intake Note: New pt for initial colo screening w/ + cologuard. CC: Pt denies any GI sx or concerns at this time. Rn Plastic Surgery Required: No Accompanied by: Self / Same As Patient Allergies No Known Allergies Allergy (Verified 04/05/25 16:02) HPI HPI [place] screening, + cologuard. Office r/s x1: Details: 60 year old? male with past medical history of hypertension, plantar fasciitis, hyperlipidemia, asthma, positive Cologuard is here today for pre colonoscopy screening.? Patient was sent to us by his PCP.? This is his first colonoscopy screening.? Patient had positive Cologuard test. Patient denies any gastrointestinal symptoms in the past or at present.? Denies any personal or family history of gastrointestinal disease, colon polyps, or CRC.? Denies history of difficulty with sedation or anesthesia in the past.? Negative for history of sleep apnea.? Denies any history of cardiac, renal, pulmonary, or hepatic disease.?? No history of infectious? diseases like hepatitis A, B, C, HIV or tuberculosis.? Patient is not on any anticoagulation [facility] Medical History Asthma High cholesterol Social History Household Members: None Housing: House Patient Tobacco Use Status: Never used Tobacco e-Cigarette/Vaping Use: Never Used Second Hand Smoke Exposure: No Current occupational status: employed Current occupational exposures/hazards: No Cognitive needs: No Hearing needs: No Vision needs: No Review of Systems Const Denies weight gain and Denies weight loss ENT Reports no additional complaints, Denies dysphagia and Denies odynophagia Card Reports no additional complaints Resp Reports no additional complaints GI Denies abdominal pain, Denies belching, Denies melena, Denies bloating, Denies change in bowel habits, Denies dysphagia, Denies excessive flatus, Denies dyspepsia, Denies heartburn, Denies diarrhea, Denies loose stools, Denies nausea, Denies odynophagia and Denies vomiting Reports no additional complaints Musc Reports no additional complaints Neuro Reports no additional complaints Psych Reports no additional complaints Endo Reports no additional complaints Physical Exam Vital Signs: Last Vital Signs Pulse 88 04/05/25 16:02 BP 118/70 04/05/25 16:02 Pulse Ox 92 04/05/25 16:02 Oxygen Delivery Method Room Air 04/05/25 16:02 BMI result Body Mass Index 22.6 Const General: healthy appearing, no acute distress and well developed Nutritional Appearance: well nourished Orientation/consciousness: patient oriented x3 Resp Effort & Inspection: normal respiratory effort, able to speak in complete sentences, no tracheal deviation and symmetric chest movement Auscultation: clear to auscultation bilaterally Cardio Rate: regular rate GI Inspection: Yes normal to inspection and No distended Palpation (GI): Soft to palpation, not firm, nontender and No hepatosplenomegaly present Auscultation: normal bowel sounds General: Yes no CVA tenderness Back/Spine/Pelvis Back: no CVA tenderness Skin General skin exam: elasticity normal, turgor normal and dry skin Neuro General: patient oriented x3 Psych Appearance: grossly normal Mental Status: mental status grossly normal Assessment & Plan Assessment & Plan (1) Screening for colon cancer: Code(s): Z12.11 - Encounter for screening for malignant neoplasm of colon Category: Medical (2) Positive colorectal cancer screening using Cologuard test: Code(s): R19.5 - Other fecal abnormalities Category: Medical Plan Patient denies any GI, cardiac or respiratory symptoms.? Denies any issues with anesthesia in the past.? Denies any history of sleep apnea.? No history infectious diseases in the past or present.? Not on any anticoagulation therapy.? No family or personal history of colon cancer or polyps.? Patient denies melena, hematochezia, unintentional weight loss or ribbon like stools.? Discussed at length the pre-procedure,? prep, diet & medications as well as what to expect prior, during and after the procedure.?? Stressed the importance of good bowel prep.? Recommended the use of Vaseline or Calmoseptine OTC & baby wipes with bowel movements to promote comfort.? ?Patient verbalizes understanding and agrees to plan of care.? He was given the opportunity to ask questions and all questions answered.? We will see him after the procedure.? Orders: Referrals GI Procedure Notification Z12.11 - Encounter for screening for malignant neoplasm of colon Medications: New bisacodyl (Dulcolax (bisacodyl)) take 4 tabs at noon the day before your colonoscopy 20 mg (4 x 5 mg) PO ONCE 4 tabs 0RF constipation 1 day Z12.11 - Encounter for screening for malignant neoplasm of colon polyethylene glycol 3350 (Miralax) As directed by gastroenterology department at [facility] 238 grams PO ONCE 238 grams 0RF Z12.11 - Encounter for screening for malignant neoplasm of colon Coding Level of Care Code New Pt Level 3 (53038) Diagnoses Screening for colon cancer Z12.11 Positive colorectal cancer screening using Cologuard test R19.5 Time Spent (min) 40 Comment 30 minutes spent with patient and additional 10 minutes spent reviewing his records
[2025-04-05 16:02] VITALS: BP 118/70; PULSE 88; O2SAT 92; BMI 22.6
== END ==
LOC: HO.HGI 16:01
PROVIDERS: PCP Family Medicine; Visit Provider Nurse Practitioner Family
DX: Z01.818 Encounter for other preprocedural examination (principal); Z12.11 Encounter for screening for malignant neoplasm of colon; R19.5 Other fecal abnormalities
CPT/HCPCS: S0285